=== PATIENT | male | born 1960 | race American Indian/Alaskan Native ===

== ENCOUNTER 2021-11-11 10:33 | Outpatient (CLI) | payer MEDICARE ==
--- NOTE | 2021-11-11 16:19 | Magnetic Resonance Report ---
MRI CERVICAL SPINE WITHOUT CONTRAST INDICATION / CLINICAL INFORMATION: [id number] AND KAMILLA. SHOULDER PAIN. TECHNIQUE: Multisequence, multiplanar images of the cervical spine were obtained. COMPARISON: None available. FINDINGS: POSTOPERATIVE CHANGES: none CRANIOCERVICAL JUNCTION:No significant abnormality. ALIGNMENT: No significant abnormality. VERTEBRAE:Normal bone marrow signal is observed throughout the cervical region. CERVICAL INTERVERTEBRAL DISCS:Mild loss of disc height is noted at the C3-4 and C4-5 levels. VISUALIZED SPINAL CORD: No intrinsic cord lesions are identified. [id number] ANALYSIS: C2-3: No significant disc abnormality, spinal canal stenosis, or neural foraminal stenosis. C3-4: Mild disc desiccation is noted. Broad-based disc protrusion flattens the thecal sac. AP diamete r of the spinal canal is about 9 mm in AP dimension. CSF signal intensity is effaced ventral to the c ord consistent with mild central canal stenosis. Moderate left-sided neuroforaminal stenosis is prese nt at the C4 nerve root level. C4-5: Mild disc desiccation and anterior osteophyte formation are observed. Small central disc protru swetha flattens the thecal sac slightly. Uncovertebral arthropathy contributes to mild right-sided C5 n erve root neuroforaminal stenosis. C5-6: Small anterior osteophyte is observed. No indication of disc herniation, central canal stenosis or neuroforaminal narrowing. C6-7: No significant disc abnormality, spinal canal stenosis, or neural foraminal stenosis. C7-T1: No significant disc abnormality, spinal canal stenosis, or neural foraminal stenosis. PARASPINAL SOFT TISSUES: No significant abnormality. ADDITIONAL FINDINGS: None. IMPRESSION: 1. Mild central canal stenosis and moderate right-sided neuroforaminal narrowing C3. Mild right-sided C5 nerve root neuroforaminal stenosis. Signer Name: Beny Tamayo MD Signed: 11/11/2021 4:15 PM Workstation Name: [id number]
== END 2021-11-11 10:34 | disposition home or self-care (01) ==
LOC: MRI 10:33
PROVIDERS: ATTEND Family Medicine
DX: M50.11 Cervical disc disorder with radiculopathy, high cervical region (principal); M50.121 Cervical disc disorder at C4-C5 level with radiculopathy; M25.78 Osteophyte, vertebrae; M48.02 Spinal stenosis, cervical region
CPT/HCPCS: 72141